=== PATIENT | male | born 1975 | race Caucasian/White ===

== ENCOUNTER 2018-05-22 09:15 | Inpatient (IN) | payer OTHER ==
[~2018-05-22] VITALS: Ht 198.1 cm; Wt 66.8 kg
[2018-05-22 09:28] VITALS: Ht 198.1 cm; Wt 66.8 kg
[2018-05-22 10:54] LABS: BASOPHIL % 0.5 % (0-2); PLATELET COUNT 231 x10^3mcL (130-400)
[2018-05-22 10:55] LABS: CALCIUM 8.5 mg/dL (8.5-10.1); CARBON DIOXIDE 23.2 mmol/L (21-32); CHLORIDE SERUM 104 mmol/L (98-107); CREATININE SERUM 0.8 mg/dL (0.7-1.3); GFR1 > 60 mL/min; GLUCOSE SERUM 116 mg/dL (74-106); POTASSIUM SERUM 3.2 mmol/L (3.5-5.1); SODIUM SERUM 139 mmol/L (136-145)
[2018-05-22 11:05] LABS: ALKALINE PHOSPHATASE 96 U/L (46-116); ALT/SGPT 16 U/L (16-63); AST/SGOT 16 U/L (15-37); BILIRUBIN TOTAL 1.37 mg/dL (0.20-1.00); TOTAL PROTEIN, SERUM 8.2 g/dL (6.4-8.2)
[2018-05-22 11:07] LABS: ALBUMIN 3.3 g/dL (3.4-5.0)
[2018-05-22 11:17] LABS: CK-MB < 0.5 ng/mL (0-3.6); CREATINE KINASE 82 U/L (39-308)
[2018-05-22 11:26] LABS: ovalocyte/elliptocyte 1+
[2018-05-22 11:27] LABS: rbc morphology (normal/abnorm) ABNORMAL (NORMAL)
[2018-05-22 12:05] LABS: UA SPECIFIC GRAVITY 1.015 (1.005-1.035); microscopic required? YES
[2018-05-22 12:07] LABS: urine erythrocyte 2+ (NEGATIVE)
[2018-05-22 14:44] VITALS: BP 151/94
[2018-05-22 14:54] LABS: T3 TOTAL 1.17 ng/mL
[2018-05-22 15:08] LABS: MAGNESIUM 2.1 mg/dL (1.8-2.4)
[2018-05-22 15:19] LABS: FREE T4 1.24 ng/dL (0.76-1.46); FREE THYROXINE INDEX 2.2 ug/dL (1.4-4.5)
[2018-05-22 15:23] LABS: IRON 24 ug/dL (65-170); TOTAL IRON BINDING CAPACITY 439 ug/dL (250-450)
[2018-05-22 16:39] VITALS: BP 87/49
[2018-05-22 18:53] VITALS: BP 100/58
[2018-05-22 20:07] VITALS: BP 97/64
[2018-05-23 05:15] VITALS: BP 132/89
[2018-05-23 07:45] LABS: ALKALINE PHOSPHATASE 82 U/L (46-116); ALT/SGPT 26 U/L (16-63); AST/SGOT 12 U/L (15-37); BILIRUBIN DIRECT 0.23 mg/dL (0.0-0.2); BILIRUBIN TOTAL 1.13 mg/dL (0.20-1.00); CARBON DIOXIDE 24.7 mmol/L (21-32); CHLORIDE SERUM 106 mmol/L (98-107); CREATININE SERUM 0.7 mg/dL (0.7-1.3); GFR1 > 60 mL/min; GLUCOSE SERUM 98 mg/dL (74-106); POTASSIUM SERUM 3.7 mmol/L (3.5-5.1); SODIUM SERUM 141 mmol/L (136-145); TOTAL PROTEIN, SERUM 7.3 g/dL (6.4-8.2)
[2018-05-23 07:46] LABS: ALBUMIN 2.8 g/dL (3.4-5.0)
[2018-05-23 07:56] LABS: BASOPHIL % 0.8 % (0-2); PLATELET COUNT 211 x10^3mcL (130-400)
[2018-05-23 08:01] LABS: RED CELL DISTRIBUTION WIDTH 17.3 % (11.5-14.5)
[2018-05-23 08:35] LABS: rbc morphology (normal/abnorm) ABNORMAL (NORMAL)
[2018-05-23 09:13] VITALS: BP 115/70
[2018-05-23 17:23] VITALS: BP 101/62
[2018-05-23 19:15] VITALS: BP 102/60
[2018-05-24 05:17] VITALS: BP 122/81
[2018-05-24 05:48] LABS: CALCIUM 8.3 mg/dL (8.5-10.1); CARBON DIOXIDE 25.1 mmol/L (21-32); CHLORIDE SERUM 106 mmol/L (98-107); CREATININE SERUM 0.7 mg/dL (0.7-1.3); GFR1 > 60 mL/min; GLUCOSE SERUM 99 mg/dL (74-106); POTASSIUM SERUM 3.6 mmol/L (3.5-5.1); SODIUM SERUM 141 mmol/L (136-145)
[2018-05-24 06:28] LABS: BASOPHIL % 0.6 % (0-2); PLATELET COUNT 230 x10^3mcL (130-400); RED CELL DISTRIBUTION WIDTH 17.3 % (11.5-14.5)
[2018-05-24 09:33] VITALS: BP 118/65
[2018-05-24 16:51] VITALS: BP 119/76
[2018-05-24 20:21] VITALS: BP 125/73
[2018-05-25 05:28] VITALS: BP 121/85
[2018-05-25 06:28] LABS: CALCIUM 8.2 mg/dL (8.5-10.1); CARBON DIOXIDE 25.3 mmol/L (21-32); CHLORIDE SERUM 105 mmol/L (98-107); CREATININE SERUM 0.6 mg/dL (0.7-1.3); GFR1 > 60 mL/min; GLUCOSE SERUM 97 mg/dL (74-106); POTASSIUM SERUM 3.4 mmol/L (3.5-5.1); SODIUM SERUM 139 mmol/L (136-145)
[2018-05-25 06:41] LABS: BASOPHIL % 0.8 % (0-2); PLATELET COUNT 220 x10^3mcL (130-400)
[2018-05-25 06:42] LABS: RED CELL DISTRIBUTION WIDTH 15.7 % (11.5-14.5)
[2018-05-25 09:12] VITALS: BP 116/74
[2018-05-25 16:52] VITALS: BP 89/50
[2018-05-25 17:05] VITALS: BP 94/61
[2018-05-25 20:01] VITALS: BP 115/79
[2018-05-26 05:34] VITALS: BP 142/87
[2018-05-26] MEDS ORDERED: CULTURELLE1 EACH PO (08:07)
[2018-05-26] MEDS ORDERED: LEVOFLOXACIN750 M1 PO (08:08)
[2018-05-26 08:34] VITALS: BP 95/64
[2018-05-26 12:26] VITALS: BP 95/64
== END 2018-05-26 15:15 | disposition home or self-care (01) | DRG 871 ==
LOC: ED 09:15 → MU 13:40
PROVIDERS: Emergency Medicine; Internal Medicine
DX: A41.9 Sepsis, unspecified organism (principal); G82.50 Quadriplegia, unspecified; N10 Acute pyelonephritis; D68.59 Other primary thrombophilia; L89.152 Pressure ulcer of sacral region, stage 2; E87.6 Hypokalemia; M06.9 Rheumatoid arthritis, unspecified; R00.0 Tachycardia, unspecified; K76.0 Fatty (change of) liver, not elsewhere classified; D50.8 Other iron deficiency anemias; S14.106S Unspecified injury at C6 level of cervical spinal cord, sequela; X58.XXXS Exposure to other specified factors, sequela
CPT/HCPCS: 83880; 84439; J0696; J1644; J1956; J3010; J3370; J3490; J7030; J7050; Q0092